=== PATIENT | female | born 1980 | race Caucasian/White ===

== ENCOUNTER 2019-03-19 10:29 | Outpatient (CLI) | payer BC, SELFPAY ==
[2019-03-19] MEDS ORDERED: IOHEXOL 50 ML IV ONE (11:05)
== END 2019-03-20 08:44 | disposition home or self-care (01) ==
LOC: SRD 10:29
DX: N97.9 Female infertility, unspecified (principal)
CPT/HCPCS: 58340; 74740; C1751; Q9967